=== PATIENT | female | born 1955 | race Caucasian/White ===

== ENCOUNTER → 2017-12-05 08:13 | Outpatient (CLI) | payer OTHER, SELFPAY ==
[2017-12-05 09:48] LABS: Cholesterol 206 mg/dL (200); Glucose 93 mg/dL (74-106); High Density Lipoprotein 94 mg/dL; Triglycerides 61 mg/dL; Very Low Density Lipoprotein 12 mg/dL (5-40)
[2017-12-07 14:34] LABS: Vitamin D 1,25-Dihydroxy 56.2 pg/mL (19.9-79.3)
== END ==
PROVIDERS: Visit Provider Obstetrics & Gynecology
DX: Z13.220 Encounter for screening for lipoid disorders (principal); Z13.1 Encounter for screening for diabetes mellitus; Z13.21 Encounter for screening for nutritional disorder
CPT/HCPCS: 36415; 80061; 82652; 82947

== ENCOUNTER → 2018-05-11 16:04 | Outpatient (CLI) | payer OTHER, SELFPAY | PROVIDERS: Visit Provider Obstetrics & Gynecology | DX: Z12.31 Encounter for screening mammogram for malignant neoplasm of breast (principal) | CPT/HCPCS: 77063; 77067 ==

== ENCOUNTER → 2019-03-09 | Outpatient (CLI) | payer OTHER, SELFPAY ==
[2019-03-09 09:58] LABS: Cholesterol 180 mg/dL (200); Glucose 87 mg/dL (74-106); High Density Lipoprotein 87 mg/dL; Triglycerides 51 mg/dL; Very Low Density Lipoprotein 10 mg/dL (5-40)
[2019-03-09 11:09] LABS: Vitamin D,25 Hydroxy 28.4 ng/mL (29.95-100.01)
== END | disposition home or self-care (01) ==
LOC: WPOUT 08:51 → LAB 08:53
PROVIDERS: Referring Provider Obstetrics & Gynecology; Visit Provider Obstetrics & Gynecology
DX: Z00.00 Encounter for general adult medical examination without abnormal findings (principal); E56.9 Vitamin deficiency, unspecified
CPT/HCPCS: 36415; 80061; 82306; 82947

== ENCOUNTER → 2019-06-29 06:54 | Outpatient (CLI) | payer OTHER, SELFPAY ==
[2019-05-01 15:33] VITALS: BMI 21.9
--- NOTE | 2019-06-29 06:58 | BI_ITS ---
BILATERAL DIGITAL MAMMOGRAM WITH TOMOSYNTHESIS: Mediolateraloblique and craniocaudal views demonstrate no evidence of dominant parenchymal masses. No cluster of microcalcifications or architectural distortion is seen. No evidence of skin thickening is identified. There has been no significant change since 05/11/2018. Breast Density: The breast tissue is almost entirely fatty. CAD was used to assist in final assessment. BI/SCREEN MAMM (CAD) W/ERROL BILAT IMPRESSION: NORMAL MAMMOGRAM BILATERALLY) ASSESSMENT CATEGORY: FINAL ASSESSMENT: BI-RAD CATEGORY I (NEGATIVE) YEARLY MAMMOGRAPHY RECOMMENDED Approximately 10% of breast cancers are not detected by mammography. A normal mammogram should not delay biopsy of a clinically suspicious abnormality. [id number] Electronically Signed: Poncho Hidalgo, at 7:59 EDT Tel , Service support ,
== END ==
PROVIDERS: Referring Provider Obstetrics & Gynecology; Visit Provider Obstetrics & Gynecology
DX: Z12.31 Encounter for screening mammogram for malignant neoplasm of breast (principal)
CPT/HCPCS: 77063; 77067

== ENCOUNTER → 2020-07-09 08:34 | Outpatient (CLI) | payer MEDICARE, OTHER, SELFPAY ==
[2020-06-04 11:12] VITALS: BMI 21.9
--- NOTE | 2020-07-09 08:43 | BI_ITS ---
MAMMOGRAPHY - BILATERAL SCREENING REASON FOR EXAM: Female, 64 years old. Routine annual screening examination. PERTINENT HISTORY: Grandmother with breast cancer. TECHNIQUE: Digital bilateral breast errol (3D mammographic acquisition) in the CC and MLO projections. 2-D mediolateral oblique (MLO) and craniocaudad (CC) views of both breasts were obtained. CAD: Full Field Digital Mammography with Computer Added Detection was performed. COMPARISON: Comparison is made with prior study dated 06/29/2019 and 05/11/2018. FINDINGS: Breast Composition: There are scattered areas of fibroglandular density. There are no dominant masses or suspicious calcifications. No other significant abnormalities are identified. There has been no significant change since the prior study. BI/SCREEN MAMM (CAD) W/ERROL BILAT IMPRESSION: Stable bilateral screening mammogram. Yearly follow-up mammogram recommended. (A) ASSESSMENT CATEGORY: BIRADS Category 1: Negative. A letter regarding these results will be sent to the patient by the facility within 30 days. Approximately 10% of breast cancers are not detected by mammography. A normal mammogram should not delay biopsy of a clinically suspicious abnormality. [id number] Electronically Signed: Rivera Cage, at 10:15 EDT , Service support ,
== END ==
PROVIDERS: Referring Provider Obstetrics & Gynecology; Visit Provider Obstetrics & Gynecology
DX: Z12.31 Encounter for screening mammogram for malignant neoplasm of breast (principal)
CPT/HCPCS: 77063; 77067

== ENCOUNTER → 2020-07-10 08:43 | Outpatient (CLI) | payer MEDICARE, OTHER, SELFPAY ==
[2020-06-04 11:12] VITALS: BMI 21.9
[2020-07-10 10:56] LABS: ALB/GLOB Ratio 1.2 RATIO (0.9-2.4); AST(SGOT) 22 U/L (15-37); Alanine Aminotransfer ALT/SGPT 18 U/L (13-56); Albumin, Serum 3.9 g/dL (3.2-5.0); Alkaline Phosphatase 79 U/L (45-117); Anion Gap 6 (5-15); BUN 16 mg/dL (7-18); BUN/Creat Ratio 18.8 RATIO (10-20); Calcium,Total 9.3 mg/dL (8.5-10.1); Chloride 106 mmol/L (98-107); Cholesterol 195 mg/dL (200); Creatinine, Serum 0.85 mg/dL (0.55-1.02); EST Glomerular Filtration Rate 71 mL/min (>60); Est Glom Filt Rate - Afr Amer 86 mL/min (>60); Globulin 3.3 g/dL (2.2-4.2); Glucose 86 mg/dL (74-106); High Density Lipoprotein 94 mg/dL; Potassium 4.2 mmol/L (3.5-5.1); Protein, Total 7.2 g/dL (6.4-8.2); Sodium Level 140 mmol/L (136-145); Triglycerides 50 mg/dL; Very Low Density Lipoprotein 10 mg/dL (5-40)
[2020-07-15 11:57] LABS: Vitamin D 1,25-Dihydroxy 67.8 pg/mL (19.9-79.3)
== END ==
PROVIDERS: Referring Provider Obstetrics & Gynecology; Visit Provider Obstetrics & Gynecology
DX: Z13.220 Encounter for screening for lipoid disorders (principal); Z13.1 Encounter for screening for diabetes mellitus
CPT/HCPCS: 36415; 80053; 80061; 82652; 84443; 86850; 86900; 86901

== ENCOUNTER → 2021-07-30 08:28 | Outpatient (CLI) | payer MEDICARE, OTHER, SELFPAY ==
--- NOTE | 2021-07-30 08:30 | BI_ITS ---
MAMMOGRAPHY - BILATERAL SCREENING REASON FOR EXAM: Female, 65 years old. Routine annual screening examination. PERTINENT HISTORY: Grandmother with breast cancer. TECHNIQUE: Digital bilateral breast errol (3D mammographic acquisition) in the CC and MLO projections. 2-D mediolateral oblique (MLO) and craniocaudad (CC) views of both breasts were obtained. CAD: Full Field Digital Mammography with Computer Added Detection was performed. COMPARISON: Comparison is made with prior study dated 07/09/2020 and 06/29/2019. FINDINGS: Breast Composition: There are scattered areas of fibroglandular density. There are no dominant masses or suspicious calcifications. No other significant abnormalities are identified. There has been no significant change since the prior study. BI/SCRN MAMM (CAD)W/ERROL BILAT IMPRESSION: Stable bilateral screening mammogram. Yearly follow-up mammogram recommended. (A) ASSESSMENT CATEGORY: BIRADS Category 1: Negative. A letter regarding these results will be sent to the patient by the facility within 30 days. Approximately 10% of breast cancers are not detected by mammography. A normal mammogram should not delay biopsy of a clinically suspicious abnormality. [id number] Electronically Signed: Rivera Cage MD at 9:12 EST , Service support ,
== END ==
PROVIDERS: Referring Provider Nurse Practitioner Women's Health; Visit Provider Nurse Practitioner Women's Health
DX: Z12.31 Encounter for screening mammogram for malignant neoplasm of breast (principal)
CPT/HCPCS: 77063; 77067

== ENCOUNTER → 2021-08-10 08:28 | Outpatient (CLI) | payer MEDICARE, OTHER, SELFPAY ==
[2021-08-10 09:44] LABS: Cholesterol 186 mg/dL (200); Glucose 94 mg/dL (74-106); High Density Lipoprotein 93 mg/dL; Triglycerides 45 mg/dL; Very Low Density Lipoprotein 9 mg/dL (5-40)
[2021-08-10 10:00] LABS: Vitamin D,25 Hydroxy 41.8 ng/mL
[2021-08-14 15:08] LABS: QNTFERON TB Mitogen Value > 10.00 IU/mL (.); QNTFERON TB Nil Value 0.01 IU/mL (.); QNTFERON TB1+ Ag Value 0.04 IU/mL (.); QNTFERON TB2+ Ag Value 0.06 IU/mL (.)
[2021-08-14 22:23] LABS: QNTIFERON TB Positive Criteria Negative (Negative)
== END ==
LOC: LAB 08:29
PROVIDERS: Visit Provider Obstetrics & Gynecology
DX: Z13.220 Encounter for screening for lipoid disorders (principal); Z13.1 Encounter for screening for diabetes mellitus; Z13.29 Encounter for screening for other suspected endocrine disorder; Z13.21 Encounter for screening for nutritional disorder
CPT/HCPCS: 36415; 80061; 82306; 82947; 84443; 86480

== ENCOUNTER → 2022-07-30 | Outpatient (CLI) | payer MEDICARE, OTHER, SELFPAY ==
[2022-07-30 08:14] LABS: Absolute Lymphocyte Count 1.89 X10^3/uL (0.83-4.51); Absolute Neutrophil Count 2.2 X10^3/uL (2.0-7.7); Basophil# 0.07 X10^3/uL; Basophil% 1.4 % (0-1); Eosinophils% 4.1 % (0-5); Hemoglobin 13.8 g/dL (12.0-15.0); Lymphocyte # 1.89 X10^3/ul (0.83-4.51); Lymphocyte % 38.7 % (19-41); Mean Corp Hgb Conc 32.9 g/dL (32-36); Mean Corpuscular Hgb 31.4 pg (27.0-32.0); Mean Corpuscular Volume 95.7 fL (81-99); Mean Platelet Vol. 10.5 fl (6.2-12.0); Monocyte% 10.2 % (0-10); NRBC Flagged by Analyzer 0 % (0-5); Neutrophil # 2.22 X10^3/uL (2.7-7.7); Neutrophil % 45.4 % (47-70); Platelet Count 216 K/mm3 (150-450); RBC Distribution Width CV 13.6 % (11.6-14.6); RBC Distribution Width SD 48.5 fl (35.1-43.9); Red Blood Count 4.39 M/mm3 (4.2-5.4); White Blood Count 4.9 K/mm3 (4.4-11.0)
[2022-07-30 08:53] LABS: Cholesterol 187 mg/dL (200); Glucose 101 mg/dL (74-106); High Density Lipoprotein 98 mg/dL; Thyroid Stim Hormone (TSH) 2.52 uIU/mL (0.358-3.74); Triglycerides 53 mg/dL; Very Low Density Lipoprotein 11 mg/dL (5-40)
[2022-07-30 09:11] LABS: Vitamin D,25 Hydroxy 36.2 ng/mL
== END | disposition home or self-care (01) ==
LOC: LAB 07:52
PROVIDERS: PCP Family Medicine; Referring Provider Nurse Practitioner Women's Health; Visit Provider Nurse Practitioner Women's Health
DX: Z13.0 Encounter for screening for diseases of the blood and blood-forming organs and certain disorders involving the immune mechanism (principal); Z13.1 Encounter for screening for diabetes mellitus; Z13.220 Encounter for screening for lipoid disorders; Z13.29 Encounter for screening for other suspected endocrine disorder; Z13.21 Encounter for screening for nutritional disorder
CPT/HCPCS: 36415; 80061; 82306; 82947; 84443; 85025

== ENCOUNTER 2022-08-03 10:01 | Outpatient (CLI) | payer MEDICARE, OTHER, SELFPAY ==
--- NOTE | 2022-08-03 10:03 | BI_ITS ---
MAMMOGRAPHY - BILATERAL SCREENING REASON FOR EXAM: Female, 66 years old. Routine annual screening examination. PERTINENT HISTORY: Grandmother with breast cancer. TECHNIQUE: Digital bilateral breast errol (3D mammographic acquisition) in the CC and MLO projections. 2-D mediolateral oblique (MLO) and craniocaudad (CC) views of both breasts were obtained. CAD: Full Field Digital Mammography with Computer Added Detection was performed. COMPARISON: Comparison is made with prior examination 07/30/2021 and 07/09/2020. FINDINGS: Breast Composition: There are scattered areas of fibroglandular density. There are no dominant masses or suspicious calcifications. No other significant abnormalities are identified. There has been no significant change since the prior study. BI/SCRN MAMM (CAD)W/ERROL BILAT IMPRESSION: Stable bilateral screening mammogram. Yearly follow-up mammogram recommended. (A) ASSESSMENT CATEGORY: BIRADS Category 1: Negative. A letter regarding these results will be sent to the patient by the facility within 30 days. Approximately 10% of breast cancers are not detected by mammography. A normal mammogram should not delay biopsy of a clinically suspicious abnormality. [id number] Electronically Signed: Rivera Cage MD at 11:07 EST ,
== END 2022-08-03 23:59 | disposition home or self-care (01) ==
LOC: OPBD 10:01
PROVIDERS: PCP Family Medicine; Visit Provider Nurse Practitioner Women's Health
DX: Z12.31 Encounter for screening mammogram for malignant neoplasm of breast (principal); Z78.0 Asymptomatic menopausal state; Z80.3 Family history of malignant neoplasm of breast
CPT/HCPCS: 77063; 77067

== ENCOUNTER 2022-08-10 15:57 | Outpatient (CLI) | payer MEDICARE, OTHER, SELFPAY ==
--- NOTE | 2022-08-10 16:00 | RAD_ITS ---
STUDY: X-RAY - LUMBAR SPINE REASON FOR EXAM: Female, 66 years old. SCOLIOSIS/ BACK PAIN TECHNIQUE: XR Spine Lumbar Min 4 Views COMPARISON: None FINDINGS: Normal lumbar lordosis. There is a dextroscoliosis of the lumbar spine. There is a normal alignment of the vertebrae. There is multilevel endplate spondylosis of the lumbar vertebrae. There is multi-level degenerative disc disease with multi-level disc space narrowing. There are atherosclerotic vascular calcifications. The soft tissue structures are unremarkable. RAD/L/S Spine Min 4 Views IMPRESSION: Degenerative changes of the spine, as detailed above. Electronically Signed: Jim Oakley MD at 16:16 EST ,
--- NOTE | 2022-08-10 16:00 | RAD_ITS ---
STUDY: X-RAY - THORACIC SPINE REASON FOR EXAM: Female, 66 years old. SCOLIOSIS/ BACK PAIN TECHNIQUE: XR Spine Thoracic 3 Views COMPARISON: None FINDINGS: Normal kyphosis of the thoracic spine. There is no substantial scoliosis. There is multilevel endplate spondylosis of the thoracic vertebrae. There is multilevel disc space narrowing of the thoracic spine. The soft tissue structures are unremarkable. RAD/Thoracic Spine 3 Views IMPRESSION: There are degenerative changes as noted above. Electronically Signed: Jim Oakley MD at 16:15 EST ,
== END 2022-08-10 23:59 | disposition home or self-care (01) ==
LOC: MTRAD 15:58
PROVIDERS: PCP Family Medicine; Referring Provider Family Medicine; Visit Provider Family Medicine
DX: M41.9 Scoliosis, unspecified (principal); M47.816 Spondylosis without myelopathy or radiculopathy, lumbar region; M47.814 Spondylosis without myelopathy or radiculopathy, thoracic region; M51.34 Other intervertebral disc degeneration, thoracic region
CPT/HCPCS: 72072; 72110

== ENCOUNTER 2022-08-19 14:45 | Outpatient (CLI) | payer MEDICARE, OTHER, SELFPAY ==
--- NOTE | 2022-08-19 14:49 | RAD_ITS ---
STUDY: X-RAY - PELVIS AND LEFT HIP REASON FOR EXAM: Female, 66 years old. HIP PAIN TECHNIQUE: 3 views of the pelvis and hip. COMPARISON: None. FINDINGS: There is a non-specific bowel gas pattern. Normal visualized soft tissue structures. Levoconvex scoliosis. Normal bilateral iliac wings, sacroiliac joints and visualized sacrum. Normal bilateral superior and inferior pubic rami. Normal pubic symphysis. Normal bilateral ischial tuberosities. Normal visualized femoral head. Normal acetabulum. Normal hip joint. RAD/HIP, UNI W/ Pelvis 2-3 Views IMPRESSION: Normal x-ray examination of the pelvis and hip. Electronically Signed: Seth Humphrey MD at 19:03 EST ,
== END 2022-08-19 23:59 | disposition home or self-care (01) ==
PROVIDERS: PCP Family Medicine; Referring Provider Family Medicine; Visit Provider Family Medicine
DX: M41.9 Scoliosis, unspecified (principal); M25.552 Pain in left hip
CPT/HCPCS: 73502

== ENCOUNTER 2022-10-06 11:00 | Outpatient (RCR) | payer MEDICARE, OTHER, SELFPAY ==
--- NOTE | 2022-08-19 10:51 | HP.PTEVAL ---
Patient's Visit Information MIKE VILLEGAS is a 66 year old F referred to Physical Therapy by Michael Sellers with a diagnosis of BACK AND R HIP PAIN.. Date of Evaluation: 08/19/22 Physical Therapist: Megan Mars PT, Cert MDT - Visit Plan Frequency: 1-2x /Week Duration: 2-3 VISITS Plan: MODALITIES NEEDED. POSTURE CORRECTION/STRENGTHENING, INSTRUCTION IN APPROPRIATE BODY MECHANICS AND ACTIVITY MODIFICATIONS. DLS STARTING WITH A NEUTRAL SPINE PROGRESSING ROM TOLERATED. MOHAN LE ROM, STRETCHING AND STRENGTHENING. HEP INSTRUCTION. - Subjective Work/Leisure: RETIRED CUSTOMER SERVICE PROFESSIONAL. Present symptoms: LEFT LOW BACK/HIP REGION. LEFT BUTTOCK/THIGH PAIN. NO NUMBNESS OR TINGLING. NO GROIN PAIN. Present since: HIP PAIN STARTED A COUPLE MONTHS PAIN. CHRONIC LBP AND SCOLIOSIS. Pain Scale: WORST 5/10, LEAST 1/10. Currently: 10. Is it getting better, worse or staying the same: GETTING WORSE. Commenced as a result of: NO APPARENT REASON. Symptoms at onset: LEFT LOW BACK. Worse: LAYING ON L SIDE, CERTAIN MVMTS LIKE COMING UP FROM BENDING OVER - ZAP, PUTTING PRESSURE ON L HIP IN SITTING. Better: IT FEELS GOOD TO BEND FORWARD BUT HURTS COMING BACK UP, PRONE EXTENSION/COBRA, STANDING. Disturbed sleep: YES - WAKES ME UP IF I ROLL ON MY L SIDE. Previous history/Previous treatment: NO H/O L HIP PROBLEMS. CHRONIC LBP. SCOLIOSIS. H/O BACK SPASMS AND DISC PROBLEMS - PT TO CALM IT DOWN AND WOULD ALWAYS GO AWAY. H/O SEEING ORTHO SURGEON PERIODICALLY. NO BACK OR HIP INJECTIONS OR SURGERY. Treatment this episode: NONE. Coughing/sneezing/straining: POSITIVE. Gait: NORMAL. Bowel or Bladder Dysfunction: NO. Accidents: NO. Unexplained weight loss: NO. Imaging: RECENT THORACIC AND LUMBAR X-RAYS REVEALING DEGENERATIVE CHANGES - MULTILEVEL SPONDYLOSIS AND DDD. NO HIP X-RAYS. PMH/Recent major surgery: UNREMARKABLE. OTHER: PATIENT REPORTS SHE IS LEAVING THE COUNTRY FOR 2 MONTHS TUESDAY. - Objective Sitting/Standing Posture: SCOLIOSIS. L ILIAC CREST HIGHER THAN R. Active Correction of posture: BETTER. Other Observations: INDEP GAIT AND TRANSFERS. C/O L LB PAIN RISING FROM SITTING AND SLOUCHING. Sensory deficit: MOHAN LE LIGHT TOUCH SENSATION IS GROSSLY INTACT AND SYMMETRICAL. ROM deficit: MOHAN LE'S WFL BUT L HIP IS ABOUT 25% TIGHTER THAN R. Motor deficit: MOHAN LE'S GROSSLY 5/5 EXCEPT R HIP 4/5 AND L HIP 4-/5. Dural Signs: POSITIVE MOHAN LE'S. Lumbar mvmt loss: flex - NIL. ext - MIN. R SG - MIN. L SG - MIRANDA. PATIENT C/O L LBP DURING ROM TESTING WITH L SG. Core strength: FAIR. Palpation: NO ACUTE LUMBAR OR HIP TENDERNESS. TREATMENT: NEUROMUSCULAR REEDUCATION - RETRAINING OF MVMT AND POSTURE FOR SITTING, LYING AND STANDING ACTIVITIES. - Balance/Special Test Scores Oswestry Low Back Score: 5 - Goals Goal 1:: DECREASE C/O LB AND L LE SX'S. Goal Time Frame: 4-6 Weeks Goal 2:: IMPROVE SITTING AND TRAVEL FUNCTION. Goal Time Frame: 4-6 Weeks Goal 3:: INSTRUCT IN PROPHYLAXIS Goal Time Frame: 4-6 Weeks - Anticipated Interventions Patient/Client Instruction: Educate patient on: Condition, Plan of Care, Risk Factors For the Purpose of:: To improve self management Therapeutic Exercise to Include: Strength training, Body mechanics, Postural training, Flexibilty training, Neuromotor development, Dynamic Lumbar Stabilization For the Purpose of:: To decrease pain, To increase ROM, To improve muscle performance and motor function, To increase tolerance to activity/condition/position, To improve ability of physical actions for home/community/work/leisure TENS: Yes IF ES: Yes Cryotherapy (ice pack, ice massage): Yes Thermo therapy (hot pack): Yes Ultrasound (thermal/non thermal): Yes For the Purpose of:: To decrease pain, To improve nutrient delivery to tissue Thank you for the opportunity to evaluate your patient. For Medicare and Medicare HMO plans, please review the plan of care and approve it. It will need to be FAXED BACK to us at [phone] for Medicare purposes. For Medicare only, by signing this I certify the plan of care. Please let me know if there are questions or concerns regarding this plan of care. Physician Signature: Date:
--- NOTE | 2022-10-01 11:06 | HP.PTREVAL ---
Michael Sellers, It has been my pleasure to treat MIKE VILLEGAS over the last 4 visits for BACK AND R HIP PAIN.. Please see the progress note below for an update on the physical therapy plan of care! Subjective: Pt just got back from [facility]. She injured her back 5 days before she left for [facility]. Her back is much improved. She had to be careful to lift her bags around. She still has this thing in her L hip. She is wondering if it is SI stuff because it seems more like that area. She has a membership here and [facility]. She has not done anything since she left. She has no pain at rest. She has some pain getting in and out of the car. Plain walking and stairs. are fine. She is able to bend now and no worse. Objective/Function: Dual stretches -B. SLR -B. SLUMP -B. Pelvic Tilt X 10... increase pain on the L side of spine... LTR X 10 to the R and then PT Plan Plan: Work on giving I gym and home routine to help reduce L sided back pain. Balance/Gait/Functional tests - Balance/Special Test Scores Oswestry Low Back Score: 1 Goals Goal 1:: DECREASE C/O LB AND L LE SX'S. Goal Time Frame: 4-6 Weeks Goal Progress: Goal Met Goal 2:: IMPROVE SITTING AND TRAVEL FUNCTION. Goal Time Frame: 4-6 Weeks Goal Progress: Goal Met Goal 3:: INSTRUCT IN I home and gym routine Goal Time Frame: 4-6 Weeks Anticipated Interventions Patient/Client Instruction: Educate patient on: Condition, Plan of Care, Risk Factors For the Purpose of:: To improve self management Therapeutic Exercise to Include: Strength training, Body mechanics, Postural training, Flexibilty training, Neuromotor development, Dynamic Lumbar Stabilization For the Purpose of:: To decrease pain, To increase ROM, To improve muscle performance and motor function, To increase tolerance to activity/condition/position, To improve ability of physical actions for home/community/work/leisure TENS: Yes IF ES: Yes Cryotherapy (ice pack, ice massage): Yes Thermo therapy (hot pack): Yes Ultrasound (thermal/non thermal): Yes For the Purpose of:: To decrease pain, To improve nutrient delivery to tissue Please do not hesitate to contact me at [phone] by phone or if you have questions or concerns regarding this new plan of care! Sincerely, Genie Smyth, MPT
--- NOTE | 2022-10-06 11:57 | HP.PTREVAL ---
Michael Sellers, It has been my pleasure to treat MIKE VILLEGAS over the last 5 visits for BACK AND R HIP PAIN.. Please see the progress note below for an update on the physical therapy plan of care! Subjective: Pt reports that she was able to do all the exercises without any issue. She does feel that she can do these exercises on her own and see how she feels Objective/Function: Instructed pt in HEP. Instructed to keep nuetral spine for next 3 weeks or so and then may progress slowly back into some flexion type yoga moves if no pain Plan Plan: Work on giving I gym and home routine to help reduce L sided back pain. Balance/Gait/Functional tests - Balance/Special Test Scores Oswestry Low Back Score: 1 Goals Goal 1:: DECREASE C/O LB AND L LE SX'S. Goal Time Frame: 4-6 Weeks Goal Progress: Goal Met Goal 2:: IMPROVE SITTING AND TRAVEL FUNCTION. Goal Time Frame: 4-6 Weeks Goal Progress: Goal Met Goal 3:: INSTRUCT IN I home and gym routine Goal Time Frame: 4-6 Weeks Anticipated Interventions Patient/Client Instruction: Educate patient on: Condition, Plan of Care, Risk Factors For the Purpose of:: To improve self management Therapeutic Exercise to Include: Strength training, Body mechanics, Postural training, Flexibilty training, Neuromotor development, Dynamic Lumbar Stabilization For the Purpose of:: To decrease pain, To increase ROM, To improve muscle performance and motor function, To increase tolerance to activity/condition/position, To improve ability of physical actions for home/community/work/leisure TENS: Yes IF ES: Yes Cryotherapy (ice pack, ice massage): Yes Thermo therapy (hot pack): Yes Ultrasound (thermal/non thermal): Yes For the Purpose of:: To decrease pain, To improve nutrient delivery to tissue Please do not hesitate to contact me at [phone] by phone or if you have questions or concerns regarding this new plan of care! Sincerely, Genie Smyth, MPT
--- NOTE | 2022-12-16 14:52 | HP.PTDCNRP_ITS ---
MIKE VILLEGAS was seen in my office for initial evaluation on 08/19/22. The following Plan of Care was established for this patient: Initial Frequency: 1-2x /Week Initial Duration: 2-3 VISITS Patient/Client Instruction: Educate patient on: Condition, Plan of Care, Risk Factors For the Purpose of:: To improve self management Therapeutic Exercise to Include: Strength training, Body mechanics, Postural training, Flexibilty training, Neuromotor development, Dynamic Lumbar Stabilization For the Purpose of:: To decrease pain, To increase ROM, To improve muscle performance and motor function, To increase tolerance to activit y/condition/position, To improve ability of physical actions for home/community/work/leisure TENS: Yes IF ES: Yes Cryotherapy (ice pack, ice massage): Yes Thermo therapy (hot pack): Yes Ultrasound (thermal/non thermal): Yes For the Purpose of:: To decrease pain, To improve nutrient delivery to tissue This patient was last seen in our office 10/06/22. Pertinent comments regarding their Physical therapy will appear below: This patient has not returned to Physical Therapy and is appropriate to return to MD for further follow-up as needed. At this point I will be discontinuing this patient from physical therapy. I w ould be happy to see this patient again in the future if found appropriate by the physician. Thank you! Megan Mars, PT, Cert MDT Balance/Gait/Functional tests - Balance/Special Test Scores Oswestry Low Back Score: 1
== END 2022-10-06 19:00 | disposition home or self-care (01) ==
LOC: PT 11:00
PROVIDERS: PCP Family Medicine; Referring Provider Family Medicine; Visit Provider Family Medicine
DX: M41.9 Scoliosis, unspecified (principal)
CPT/HCPCS: 97014; 97035; 97110; 97112; 97162; 97530; G0283

== ENCOUNTER → 2023-04-27 | Outpatient (CLI) | payer MEDICARE, OTHER, SELFPAY ==
--- NOTE | 2023-04-27 08:28 | BD_ITS ---
STUDY: DUAL ENERGY X-RAY ABSORPTIOMETRY / DXA REASON FOR EXAM: Female, 67 years old. [id number] TECHNIQUE: Bone Mineral Density (BMD) measurements of lumbar spine and bilateral hips were obtained. COMPARISON: None. FINDINGS: Lumbar Spine (L1-L4): g/cm2 (0.778) / T-score (-2.9) / Z-score (-0.8) Findings are suggestive of osteoporosis with a high fracture risk. Left Femur Total: g/cm2 (0.641) / T-score (-2.5) / Z-score (-1.0) Left Femoral Neck: g/cm2 (0.554) / T-score (-2.7) / Z-score (-1.0) Right Femur Total: g/cm2 (0.673) / T-score (-2.2) / Z-score (-0.8) Right Femoral Neck: g/cm2 (0.621) / T-score (-2.1) / Z-score (-0.4) BD/Dexa Bone Density Study IMPRESSION: The patient is considered osteoporotic as outlined below according to World Shivam Organization (WHO) criteria with a high fracture risk. Reference Information: The T-score is the number of standard deviations above or below the standard which is normal for young adults at their peak bone mineral density. The World Health Organization (WHO) interprets the T-scores as follows: Above -1 Normal bone density Between -1 and -2.5 Osteopenia Equal to / or below -2.5 Osteoporosis As a practical clinical guideline, osteopenia may be graded as follows: Mild -1 through -1.5 Moderate -1.6 through -2.0 Severe -2.1 through -2.4 The Z-score is the number of standard deviations above or below age-matched controls. A Z-score of less than -1.5 would be considered abnormal. References: 1. NIH Osteoporosis and Related Bone Diseases www osteo.org 2. International Society for Clinical Densitometry www iscd.org 3. National Osteoporosis Foundation www nof.org Electronically Signed: Rivera Cage MD at 8:59 EDT ,
== END | disposition home or self-care (01) ==
LOC: OPBD 08:21
PROVIDERS: PCP Nurse Practitioner Family; Referring Provider Nurse Practitioner Family; Visit Provider Nurse Practitioner Family
DX: Z78.0 Asymptomatic menopausal state (principal)
CPT/HCPCS: 77080

== ENCOUNTER → 2023-08-04 | Outpatient (CLI) | payer MEDICARE, OTHER, SELFPAY ==
--- NOTE | 2023-08-04 07:29 | BI_ITS ---
MAMMOGRAPHY - BILATERAL SCREENING REASON FOR EXAM: Female, 67 years old. Routine annual screening examination. PERTINENT HISTORY: Grandmother with breast cancer. TECHNIQUE: Digital bilateral breast errol (3D mammographic acquisition) in the CC and MLO projections. 2-D mediolateral oblique (MLO) and craniocaudad (CC) views of both breasts were obtained. CAD: Full Field Digital Mammography with Computer Added Detection was performed. COMPARISON: Comparison is made with prior study dated August 03, 2022 and July 30, 2021. FINDINGS: Breast Composition: There are scattered areas of fibroglandular density. There are no dominant masses or suspicious calcifications. No other significant abnormalities are identified. There has been no significant change since the prior study. BI/SCRN MAMM (CAD)W/ERROL BILAT IMPRESSION: Stable bilateral screening mammogram. Yearly follow-up mammogram recommended. (A) ASSESSMENT CATEGORY: BIRADS Category 1: Negative. A letter regarding these results will be sent to the patient by the facility within 30 days. Approximately 10% of breast cancers are not detected by mammography. A normal mammogram should not delay biopsy of a clinically suspicious abnormality. [id number] Electronically Signed: Rivera Cage MD at 8:58 EST ,
== END | disposition home or self-care (01) ==
LOC: OPBI 07:28
PROVIDERS: PCP Nurse Practitioner Family; Referring Provider Nurse Practitioner Women's Health; Visit Provider Nurse Practitioner Women's Health
DX: Z12.31 Encounter for screening mammogram for malignant neoplasm of breast (principal); Z80.3 Family history of malignant neoplasm of breast
CPT/HCPCS: 77063; 77067

== ENCOUNTER → 2023-08-10 | Outpatient (CLI) | payer MEDICARE, OTHER, SELFPAY ==
[2023-08-10 09:25] LABS: Absolute Neutrophil Count 1.6 X10^3/uL (2.0-7.7); Basophil# 0.06 X10^3/uL; Basophil% 1.5 % (0-1); Eosinophils% 4.9 % (0-5); Hematocrit 44.1 % (37-47); Hemoglobin 14.6 g/dL (12.0-15.0); Lymphocyte % 46.2 % (19-41); Mean Corp Hgb Conc 33.1 g/dL (32-36); Mean Corpuscular Hgb 32.1 pg (27.0-32.0); Mean Corpuscular Volume 96.9 fL (81-99); Mean Platelet Vol. 10.6 fl (6.2-12.0); Monocyte# 0.39 X10^3/uL; Monocyte% 9.5 % (0-10); NRBC Flagged by Analyzer 0 % (0-5); Neutrophil # 1.56 X10^3/uL (2.7-7.7); Neutrophil % 37.9 % (47-70); Platelet Count 220 K/mm3 (150-450); RBC Distribution Width CV 13.1 % (11.6-14.6); RBC Distribution Width SD 46.6 fl (35.1-43.9); Red Blood Count 4.55 M/mm3 (4.2-5.4); White Blood Count 4.1 K/mm3 (4.4-11.0)
[2023-08-10 09:53] LABS: Calcium, Urine (Random) 5.4 mg/dL (Not Estab.)
[2023-08-10 09:56] LABS: Vitamin D,25 Hydroxy 63.2 ng/mL
[2023-08-10 10:04] LABS: ALB/GLOB Ratio 1.2 RATIO (0.9-2.4); AST(SGOT) 29 U/L (15-37); Alanine Aminotransfer ALT/SGPT 26 U/L (13-56); Albumin, Serum 3.9 g/dL (3.2-5.0); Alkaline Phosphatase 60 U/L (45-117); Anion Gap 3 (5-15); BUN 23 mg/dL (7-18); BUN/Creat Ratio 28.8 RATIO (10-20); Chloride 106 mmol/L (98-107); Cholesterol 182 mg/dL (200); EST Glomerular Filtration Rate 76 mL/min (>60); Est Glom Filt Rate - Afr Amer 92 mL/min (>60); Globulin 3.3 g/dL (2.2-4.2); Glucose 93 mg/dL (74-106); High Density Lipoprotein 83 mg/dL; Potassium 4.1 mmol/L (3.5-5.1); Protein, Total 7.2 g/dL (6.4-8.2); Sodium Level 139 mmol/L (136-145); T4 Free Direct 0.88 ng/dL (0.76-1.46); Thyroid Stim Hormone (TSH) 3.32 uIU/mL (0.358-3.74); Triglycerides 44 mg/dL; Very Low Density Lipoprotein 9 mg/dL (5-40)
== END | disposition home or self-care (01) ==
LOC: LAB 08:12
PROVIDERS: PCP Nurse Practitioner Family; Referring Provider Nurse Practitioner Women's Health; Visit Provider Nurse Practitioner Women's Health
DX: Z00.00 Encounter for general adult medical examination without abnormal findings (principal); M81.0 Age-related osteoporosis without current pathological fracture; R73.03 Prediabetes; Z13.1 Encounter for screening for diabetes mellitus; Z13.220 Encounter for screening for lipoid disorders
CPT/HCPCS: 36415; 80053; 80061; 82306; 82340; 82570; 84439; 84443; 85025

== ENCOUNTER → 2024-08-08 | Outpatient (CLI) | payer MEDICARE, OTHER, SELFPAY | END | disposition home or self-care (01) | LOC: OPBI 09:03 | PROVIDERS: PCP Nurse Practitioner Family; Referring Provider Nurse Practitioner Women's Health; Visit Provider Nurse Practitioner Women's Health | DX: Z12.31 Encounter for screening mammogram for malignant neoplasm of breast (principal) | CPT/HCPCS: 77063; 77067 ==

== ENCOUNTER → 2024-10-04 | Outpatient (CLI) | payer MEDICARE, OTHER, SELFPAY ==
[2024-10-04 10:23] LABS: ALB/GLOB Ratio 1.1 RATIO (0.9-2.4); AST(SGOT) 24 U/L (15-37); Alanine Aminotransfer ALT/SGPT 18 U/L (13-56); Albumin, Serum 3.8 g/dL (3.2-5.0); Alkaline Phosphatase 63 U/L (45-117); Anion Gap 7 (5-15); BUN 23 mg/dL (7-18); BUN/Creat Ratio 25.7 RATIO (10-20); Calcium,Total 9.2 mg/dL (8.5-10.1); Chloride 105 mmol/L (98-107); Cholesterol 192 mg/dL (200); EST Glomerular Filtration Rate 66 mL/min (>60); Est Glom Filt Rate - Afr Amer 80 mL/min (>60); Globulin 3.5 g/dL (2.2-4.2); Glucose 92 mg/dL (74-106); High Density Lipoprotein 90 mg/dL; Potassium 4.1 mmol/L (3.5-5.1); Protein, Total 7.3 g/dL (6.4-8.2); Sodium Level 139 mmol/L (136-145); T4 Free Direct 0.88 ng/dL (0.76-1.46); Triglycerides 55 mg/dL; Very Low Density Lipoprotein 11 mg/dL (5-40)
[2024-10-04 12:20] LABS: Absolute Lymphocyte Count 1.51 X10^3/uL (0.83-4.51); Absolute Neutrophil Count 1.9 X10^3/uL (2.0-7.7); Basophil# 0.07 X10^3/uL; Basophil% 1.7 % (0-1); Eosinophil# 0.24 X10^3/uL; Eosinophils% 5.7 % (0-5); Hematocrit 44.3 % (37-47); Hemoglobin 14.5 g/dL (12.0-15.0); Lymphocyte # 1.51 X10^3/ul (0.83-4.51); Lymphocyte % 35.9 % (19-41); Mean Corp Hgb Conc 32.7 g/dL (32-36); Mean Corpuscular Hgb 31.5 pg (27.0-32.0); Mean Corpuscular Volume 96.3 fL (81-99); Mean Platelet Vol. 11.3 fl (6.2-12.0); Monocyte# 0.43 X10^3/uL; Monocyte% 10.2 % (0-10); NRBC Flagged by Analyzer 0 % (0-5); Neutrophil # 1.94 X10^3/uL (2.7-7.7); Platelet Count 206 K/mm3 (150-450); RBC Distribution Width CV 13.5 % (11.6-14.6); RBC Distribution Width SD 48.5 fl (35.1-43.9); White Blood Count 4.2 K/mm3 (4.4-11.0)
[2024-10-06 16:08] LABS: Vitamin D 1,25-Dihydroxy 48.6 pg/mL (24.8-81.5)
== END | disposition home or self-care (01) ==
PROVIDERS: PCP Internal Medicine; Referring Provider Nurse Practitioner Women's Health; Visit Provider Nurse Practitioner Women's Health
DX: R79.9 Abnormal finding of blood chemistry, unspecified (principal); Z13.29 Encounter for screening for other suspected endocrine disorder; Z13.220 Encounter for screening for lipoid disorders; M85.80 Other specified disorders of bone density and structure, unspecified site

== ENCOUNTER → 2025-07-17 | Outpatient (CLI) | payer MEDICARE, OTHER, SELFPAY ==
--- NOTE | 2025-07-17 09:20 | BD_ITS ---
PROCEDURE: BD/Dexa Bone Density Study
== END | disposition home or self-care (01) ==
LOC: OPBD 09:15
PROVIDERS: PCP Internal Medicine; Referring Provider Internal Medicine; Visit Provider Internal Medicine
DX: M81.0 Age-related osteoporosis without current pathological fracture (principal)
CPT/HCPCS: 77080

== ENCOUNTER → 2025-08-09 | Outpatient (CLI) | payer MEDICARE, OTHER, SELFPAY ==
--- NOTE | 2025-08-09 10:30 | BI_ITS ---
EXAM: SCRN MAMM (CAD)W/ERROL BILAT DATE: 08/09/2025 CLINICAL HISTORY: F, Age 69 y/o , SCREENING FOR BREAST CANCER TECHNIQUE: Procedure Code: [id number] Modality: MG Procedure: SCRN MAMM (CAD)W/ERROL BILAT COMPARISON: Prior exam(s) dated 08/08/2024, 08/04/2023, 08/03/2022. FINDINGS: TISSUE DENSITY: The breasts are almost entirely fatty. Bilateral Breast Mammographic Findings: No significant masses, calcifications or other abnormalities are identified. BI/SCRN MAMM (CAD)W/ERROL BILAT IMPRESSION: There is no mammographic evidence of malignancy. OVERALL FINAL ASSESSMENT BI-RADS 1: NEGATIVE. RECOMMENDATION: Routine annual follow-up in 1 Year Additional Recommendation none A letter with findings and recommendations will be mailed to the patient. Reading Location: [id number]
== END | disposition home or self-care (01) ==
PROVIDERS: PCP Internal Medicine; Referring Provider Nurse Practitioner Women's Health; Visit Provider Nurse Practitioner Women's Health
DX: Z12.31 Encounter for screening mammogram for malignant neoplasm of breast (principal)
CPT/HCPCS: 77063; 77067